=== PATIENT | female | born 1940 | race Caucasian/White ===

== ENCOUNTER 2017-08-13 10:56 | Outpatient (CLI) | payer MEDICARE | END 2017-08-13 10:57 | disposition home or self-care (01) | LOC: BICMAMMO 10:56 | PROVIDERS: ATTEND Internal Medicine | DX: Z78.0 Asymptomatic menopausal state (principal) | CPT/HCPCS: 77080 ==

== ENCOUNTER 2017-09-25 09:11 | Outpatient (CLI) | payer MEDICARE ==
[2017-09-25 10:21] LABS: #Basophils 0.1 thou/uL (0.0-0.2); #Eosinphils 0.4 thou/uL (0.0-0.7); #Lymphocytes 1.9 thou/uL (1.20-3.40); #Monocytes 0.6 thou/uL (0.11-0.59); #Neutrophils 4.1 thou/uL (1.40-6.50); %Basophils 1.3 % (0.0-1.0); %Eosinophils 6.2 % (0.0-10.0); %Lymphocytes 26.5 % (21.0-51.0); %Monocytes 8.4 % (0.0-10.0); %Neutrophils 57.6 % (42.0-75.0); Hemoglobin 14.7 g/dL (12.0-16.0); Mean Corpuscular HGB CONC 33.3 g/dL (32.0-36.0); Mean Corpuscular Hemoglobin 34.5 pg (27.0-31.0); Mean Platelet Volume 6.3 fL (7.4-10.4); Platelet Count 275 thou/uL (130-400); RBC Distribution Width 12.3 % (11.5-14.5); Red Blood Cell (RBC) Count 4.25 mill/uL (4.20-5.40); White Blood Cell (WBC) Count 7.1 thou/uL (4.8-10.8)
[2017-09-25 10:29] LABS: INR-International Normal Ratio 0.9; Prothrombin Time 12.3 SEC (12.0-14.7)
[2017-09-25 10:47] LABS: Anion Gap 14 mmol/L (10-20); BUN (Urea Nitrogen) 20 mg/dL (9.8-20.1); Calc. Creatinine Clearance 0 mL/min (70-130); Calcium 9.9 mg/dL (7.8-10.44); Carbon Dioxide 24 mmol/L (23-31); Chloride 107 mmol/L (98-107); Estimated GFR-MDRD 55; Glucose 118 mg/dL (83-110); Potassium 4.6 mmol/L (3.5-5.1); Sodium 140 mmol/L (136-145)
[2017-09-25 12:48] LABS: Bilirubin Negative (Negative); Blood, Urine Negative (Negative); Clarity CLEAR (Clear); Glucose, Urine (Dipstick) Negative (Negative); Leukocyte Small (Negative); Nitrite Negative (Negative); Protein, Urine (Dipstick) Negative (Neg-Trace); Specific Gravity, Urine 1.018 (1.002-1.036); Urobilinogen 0.2 mg/dL (0.2-1.0); pH, Urine 7.5 (5.0-9.0)
[2017-09-25 12:56] LABS: Bacteria/HPF 1+ HPF (None Seen); Hyaline Casts/LPF 4-6 HYALINE CAST LPF (0-3 Hyaline); Pathc Cast-AUWi Flag 1.21 (0-2.49); RBC/HPF 0-3 HPF (0-3)
== END 2017-09-25 09:12 | disposition home or self-care (01) ==
LOC: LABBT 09:11
PROVIDERS: ATTEND Orthopaedic Surgery
DX: Z01.812 Encounter for preprocedural laboratory examination (principal); M16.12 Unilateral primary osteoarthritis, left hip
CPT/HCPCS: 80048; 81001; 85025; 85610; 86850; 86900; 86901; 87081

== ENCOUNTER 2017-09-25 09:15 | Inpatient (IN) | payer MEDICARE ==
[2017-09-25 09:56] VITALS: BMI 43.1
[2017-10-02] MEDS ORDERED: Vancomycin HCl 1.5 GM in Sodium Chloride 0.9% 250 ML 300 ML IVPB SCH ×2 (06:30→20:00)
[2017-10-02] MEDS ORDERED: Midazolam HCl 2 mg/2 ml Vial ONE (06:32)
[2017-10-02] MEDS ORDERED: Fentanyl 100 MCG/2 ML VIAL ONE (06:32)
[2017-10-02] MEDS ORDERED: Levofloxacin 500 mg/D5W 100 ml Premix Bag ONE (07:01)
[2017-10-02] MEDS ORDERED: Clindamycin/D5W 900 mg/50 ml Premix Bag ONE (07:01)
[2017-10-02] MEDS ORDERED: CEFAZOLIN/Water 2 GM/20 ML SYRINGE ONE (07:01)
[2017-10-02] MEDS ORDERED: diphenhydrAMINE 25 MG CAP PO PRN (07:15)
[2017-10-02] MEDS ORDERED: traMADol HCl 50 MG TAB PO PRN (07:15)
[2017-10-02] MEDS ORDERED: Naloxone HCl 0.4 mg/ml Vial IVP PRN (07:15)
[2017-10-02] MEDS ORDERED: Bupivacaine 0.25% 10 ML VIAL EPIDURAL PRN (07:15)
[2017-10-02] MEDS ORDERED: diphenhydrAMINE 50 MG/ML VIAL IM PRN (07:15)
[2017-10-02] MEDS ORDERED: Naloxone HCl 0.4 mg/ml Vial IV PRN (07:15)
[2017-10-02] MEDS ORDERED: Ondansetron HCl/PF 4 MG/2 ML Vial IVP PRN (07:15)
[2017-10-02] MEDS ORDERED: Promethazine HCl 25 MG/ML VIAL IM PRN (07:15)
[2017-10-02] MEDS ORDERED: Hydrocerin (Eucerin) Cream 120 gm Jar TOP PRN (07:15)
[2017-10-02] MEDS ORDERED: fentaNYL Citrate/PF 1,250 MCG, Bupivacaine 25 ML in Sodium Chloride 0.9% 250 ML 200 ML EPIDURAL SCH (07:15)
[2017-10-02] MEDS ORDERED: Zolpidem Tartrate 5 MG TAB PO PRN (07:15)
[2017-10-02] MEDS ORDERED: HYDROcodone/Acetaminophen 5/325 mg Tablet PO PRN (07:15)
[2017-10-02] MEDS ORDERED: Promethazine HCl 25 MG SUPP PR PRN (07:15)
[2017-10-02] MEDS ORDERED: diphenhydrAMINE 50 MG/ML VIAL IVP PRN (07:15)
[2017-10-02] MEDS ORDERED: Bupivacaine HCl 0.5%/Epinephrine 1:200,000/PF 30 ml Vial ONE (07:48)
[2017-10-02] MEDS ORDERED: Acetaminophen 325 MG TAB PO PRN (09:39)
[2017-10-02] MEDS ORDERED: HYDROcodone/Acetaminophen 10/325 mg Tablet PO PRN ×2 (09:39)
[2017-10-02] MEDS ORDERED: Fentanyl 100 MCG/2 ML VIAL SLOW IVP PRN ×2 (09:39)
[2017-10-02] MEDS ORDERED: Tranexamic Acid 1,000 MG in Sodium Chloride 0.9% 100 ML IVPB SCH (09:45)
[2017-10-02 11:24] LABS: Bilirubin Negative (Negative); Blood, Urine Negative (Negative); Clarity CLEAR (Clear); Glucose, Urine (Dipstick) Negative (Negative); Leukocyte Negative (Negative); Nitrite Negative (Negative); Protein, Urine (Dipstick) Negative (Neg-Trace); Specific Gravity, Urine 1.023 (1.002-1.036); Urobilinogen 0.2 mg/dL (0.2-1.0); pH, Urine 6.5 (5.0-9.0)
--- NOTE | 2017-10-02 12:51 | RAD ---
TWO VIEWS LEFT HIP: INDICATIONS: Postop left hip. COMPARISON: None. FINDINGS: There is a left total hip prosthesis that projects in the expected position. No acute osseous abnorm ality is evident. A focus of heterotopic ossification overlies the left greater trochanter. IMPRESSION: Postoperative left hip. POS: [facility]
[2017-10-02] MEDS ORDERED: Ondansetron HCl/PF 4 MG/2 ML Vial ONE (14:31)
[2017-10-02] MEDS ORDERED: Propofol 200 MG/20 ML VIAL ONE (14:31)
[2017-10-02] MEDS ORDERED: Lidocaine 1% PF 5 ML VIAL ONE (14:31)
[2017-10-02] MEDS ORDERED: Glycopyrrolate 0.2 MG/ML 5 ML SYRINGE ONE (14:31)
[2017-10-02] MEDS ORDERED: Labetalol 100 MG/20 ML MDV ONE (14:31)
[2017-10-02] MEDS ORDERED: PHENYLEPHRINE-NS 100 MCG/ML 10 ML SYRINGE ONE (14:31)
--- NOTE | 2017-10-02 14:31 | OP ---
DATE OF PROCEDURE: 10/02/2017 PREOPERATIVE DIAGNOSIS: Left hip osteoarthritis. POSTOPERATIVE DIAGNOSIS: Left hip osteoarthritis. PROCEDURE PERFORMED: Left total hip arthroplasty. STAFF: Alvin Mark M.D. RF TEST TECHNICIAN: Merlin Anderson PA-C. ANESTHESIA: General with epidural. Staff; Dr. Farrar. ESTIMATED BLOOD LOSS: 200 mL. TOURNIQUET TIME: None. IMPLANTS: A Trident PSL cluster shell, 48 mm. A Trident 10 degree poly insert 32 x 13 mm. An Accolade 130 degree neck, size 3 and 13 mm femoral head -4. ANTIBIOTICS: Levaquin 500 mg, vancomycin 1.5 grams and Ancef 2 grams. The patient received TXA 1 gram. COMPLICATIONS: None. 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 The patient has pain that can be severe. The patient had a previous hip injection 3 months ago which only gave her a couple of weeks relief. I discussed with the patient the risks and benefits of a left total hip arthroplasty including pain, scar, bleeding, infection, damage to vital structures, decreased range of motion or strength, failure of procedure, continued pain despite surgical intervention. I discussed she was at increased risks because of her size, technical difficulty. She understands these risks and benefits and elected to proceed. PROCEDURE IN DETAIL: Timeout was performed designating the patient's left lower extremity as the operative site based on sight, consents, markings. After completion of timeout, the patient's left lower extremity was prepped and draped in a sterile fashion. The patient had been placed in a lateral decubtitisposition, bony prominences well-padded, an axillary roll. A 15 mm skin incision was made down through skin and down through fat down to the IT and exposed the IT band. The IT band was split. We actually made a small rent in the IT band because it was going to split based on how tight it was. We exposed the gluteus medius and minimus, there was a fatty atrophy within the gluteus medius. We then did a tenotomy. There was also tearing in the mid minimus noted which likely was causing her limp. We then exposed the capsule, excised the capsule, removed the labrum, dislocated the hip, exposed the acetabular fractures. We controlled bleeding, had some bleeding inferiorly with exposure. We then cut the femoral neck, removed the head, placed acetabular fracture, excised the labrum, reamed. We felt like a 48 was about the right cup. We had to reream to deepen the cup so that we could chose a PCL cup. We then hammered into place, had a nice firm fit. I was pleased with the overall traction. We then placed a 10 mm poly posterior superior, had good version based on our version eugenio. We then hammered the poly into place. We then moved to the femoral neck. The femur. We then broached up to 2.5, trialed , felt like with a long option +8 option was still not just what we wanted, therefore we went up to a 3 and we trialed with a 3, standard, it was a little bit tight; therefore I chose a -4 option, placed the final implant -[address] She had good length, she had good overall rotation, did not impinge flexion, high flexion, internal and external rotation. I liked the overall alignment, seated position directly of the acetabulum. We then washed, closed what was left of the gluteus minimus with 2 Vicryl, we closed the IT band with #2 Vicryl followed by #2 Quill closing our posterior rent that we had made. We closed the fat. There was some very deep fat layer with 0 Vicryl, closed subcu with 0 Quill, 2-0 Quill, and glue. The patient will be weightbearing as tolerated. I will consult rehab postop for her management. The patient will take aspirin. Munday is guarded. MTDD
[2017-10-02] MEDS: Dextrose 5 %-0.45 % NaCl 1,000 ML IV SCH ×2 (15:14→20:21)
[2017-10-02] MEDS: CEFAZOLIN/Water 2 GM/20 ML SYRINGE SLOW IVP SCH ×2 (15:15→23:08)
[2017-10-02] MEDS ORDERED: Rosuvastatin 10 MG TAB PO SCH (16:30)
[2017-10-02] MEDS: Ketorolac Tromethamine 30 MG/ML VIAL IVP PRN (17:46)
[2017-10-02] MEDS: Ascorbic Acid 500 mg Chewable Tablet PO SCH (20:11)
[2017-10-02] MEDS: Famotidine 20 MG TAB PO SCH (20:15)
[2017-10-02] MEDS: Niacin 500 MG TAB PO SCH (20:16)
[2017-10-02] MEDS: Polyethylene Glycol 3350 17 GM Packet PO SCH ×2 (20:17→20:26)
[2017-10-02] MEDS ORDERED: POTASSIUM GLUCONATE PO SCH (21:00)
[2017-10-02] MEDS ORDERED: Polyethylene Glycol 3350 17 GM Packet PO PRN (21:58)
--- NOTE | 2017-10-02 21:58 | PDOC.PN ---
- Subjective Encounter Start Date: 10/02/17 Encounter Start Time: 17:00 Patient seen and examined. No new complaints. Follows Dr Lutz. Consult for med mngt. No CP/SOB/N/V - Objective MAR Reviewed: Yes Vital Signs & Weight: Vital Signs (12 hours) Temp Pulse Resp BP Pulse Ox 10/02/17 20:00 97.9 F 69 18 139/80 95 10/02/17 12:00 96 F L 59 L 18 98 10/02/17 11:15 96 F L 59 L 18 129/78 98 Weight Weight 236 lb I&O: 10/01/17 10/02/17 10/03/17 06:59 06:59 06:59 Intake Total 2100 Output Total 1600 Balance 500 EKG Reviewed by me: Yes (SR) Phys Exam - Physical Examination Constitutional: NAD Respiratory: no wheezing, no rhonchi Cardiovascular: RRR, no rub Gastrointestinal: soft, non-tender, positive bowel sounds Musculoskeletal: no edema Neurological: moves all 4 limbs Dx/Plan - Plan DVT proph w/SCDs IMPRESSION: 1. CIERRA on CPAP 2. Dyslipidemia 3. Morbid obesity BMI 43.2 4. CKD 3 5. h/o Breast Ca / DJD PLAN: * Cont Statins * Cont home CPAP * Cont selected home meds as below * Close monitoring * Will follow. Thank you for this consultation. * Full code. * DPAO - self/family Review of Systems - Review of Systems Respiratory: negative: Cough, Dry, Shortness of Breath, Hemoptysis, SOB with Excertion, Pleuritic Pain, Sputum, Wheezing Cardiovascular: negative: chest pain, palpitations, orthopnea, paroxysmal nocturnal dyspnea, edema, light headedness, other Gastrointestinal: negative: Nausea, Vomiting, Abdominal Pain, Diarrhea, Constipation, Melena, Hematochezia - Medications/Allergies Allergies/Adverse Reactions: Allergies Allergy/AdvReac Type Severity Reaction Status Date / Time Penicillins Allergy Intermediate Rash Verified 09/25/17 09:56 Medications: Current Medications Acetaminophen (Tylenol) 650 mg PO Q4H PRN PRN Reason: GUTIERREZ/ T > 101F; Mild Pain (1-3) Hydrocodone Bitart/Acetaminophen ([place] 5/325) 1 tab PO Q4H PRN PRN Reason: Mild Pain 0-3 Hydrocodone Bitart/Acetaminophen ([place] 5/325) 2 tab PO Q4H PRN PRN Reason: For Moderate Pain 4-6 Ascorbic Acid (Vitamin C) 1,000 mg PO BID [facility] Last Admin: 10/02/17 20:11 Dose: 1,000 mg Aspirin (Aspirin Chewable) 81 mg PO BID [facility] Last Admin: 10/02/17 20:15 Dose: 81 mg Cefazolin Sodium (Ancef) 2 gm SLOW IVP 0700,1500,2300 [facility] Stop: 10/02/17 23:01 Last Admin: 10/02/17 15:15 Dose: 2 gm Diphenhydramine HCl (Benadryl) 25 mg PO Q3H PRN PRN Reason: Itching Diphenhydramine HCl (Benadryl) 25 mg IM Q3H PRN PRN Reason: Itching Diphenhydramine HCl (Benadryl) 25 mg IVP Q3H PRN PRN Reason: Itching Emollient Cream (Hydrocerin Cream) 0 gm TOP PRN PRN PRN Reason: Itching Famotidine (Pepcid) 20 mg PO BID [facility] Last Admin: 10/02/17 20:15 Dose: 20 mg Ferrous Gluconate (Fergon) 324 mg PO BID[facility] Fentanyl Citrate 1,250 mcg/Bupivacaine HCl 25 ml/ Sodium Chloride 250 mls @ 0 mls/hr EPIDURAL INF [facility] PRN Reason: As Directed Dextrose/Sodium Chloride (D5 1/2 Ns) 1,000 mls @ 100 mls/hr IV .Q10H [facility] Last Admin: 10/02/17 20:21 Dose: Not Given Levofloxacin 500 mg/ Device 100 mls @ 100 mls/hr IVPB 0800 [facility] Stop: 10/03/17 08:59 Iron/Minerals/Multivitamins (Theragran M) 1 tab PO DAILY [facility] Ketorolac Tromethamine (Toradol) 15 mg IVP Q6H PRN PRN Reason: Moderate Pain (4-6) Stop: 10/05/17 07:16 Last Admin: 10/02/17 17:46 Dose: 15 mg Multivitamins (Theragran) 1 tab PO DAILY [facility] Naloxone HCl (Narcan) 0.2 mg IV Q5MIN PRN PRN Reason: RR <=8 OR OBTUNDED/UNAROUSABLE Naloxone HCl (Narcan) 0.1 mg IVP Q15MIN PRN PRN Reason: URINARY RETENTION Niacin (Niacin) 250 mg PO BID [facility] Last Admin: 10/02/17 20:16 Dose: 250 mg Ondansetron HCl (Zofran) 4 mg IVP Q6H PRN PRN Reason: Nausea/Vomiting Polyethylene Glycol (Miralax) 17 gm PO BID [facility] Last Admin: 10/02/17 20:26 Dose: Not Given Promethazine HCl (Phenergan) 12.5 mg IM Q4H PRN PRN Reason: Nausea Promethazine HCl (Phenergan Suppository) 25 mg HI Q4H PRN PRN Reason: Nausea/Vomiting Rosuvastatin Calcium (Crestor) 10 mg PO Q2D [facility] Last Admin: 10/02/17 17:39 Dose: 10 mg Senna/Docusate Sodium (Senokot S) 2 tab PO BID [facility] Sodium Chloride (Flush - Normal Saline) 10 ml IVF Q12HR [facility] Last Admin: 10/02/17 20:21 Dose: Not Given Sodium Chloride (Flush - Normal Saline) 10 ml IVF PRN PRN PRN Reason: Saline Flush Tramadol HCl (Ultram) 50 mg PO Q6H PRN PRN Reason: Mild Pain 1-3 Tramadol HCl (Ultram) 100 mg PO Q6H PRN PRN Reason: Moderate Pain 4-6 Zolpidem Tartrate (Ambien) 5 mg PO HSPRN PRN PRN Reason: Insomnia
[2017-10-03] MEDS: Dextrose 5 %-0.45 % NaCl 1,000 ML IV SCH ×3 (05:37→21:59)
[2017-10-03 05:49] LABS: Hemoglobin 12.1 g/dL (12.0-16.0); Mean Corpuscular HGB CONC 32.8 g/dL (32.0-36.0); Mean Platelet Volume 6.2 fL (7.4-10.4); Platelet Count 223 thou/uL (130-400); RBC Distribution Width 12.1 % (11.5-14.5); Red Blood Cell (RBC) Count 3.56 mill/uL (4.20-5.40); White Blood Cell (WBC) Count 9.5 thou/uL (4.8-10.8)
[2017-10-03] MEDS: traMADol HCl 50 MG TAB PO PRN ×2 (06:26→17:04)
[2017-10-03] MEDS: Ferrous Gluconate 324 MG TAB PO SCH ×2 (08:35→17:06)
[2017-10-03] MEDS: Niacin 500 MG TAB PO SCH ×2 (08:35→20:15)
[2017-10-03] MEDS: Multivitamin W/ Minerals 1 TAB PO SCH (08:37)
[2017-10-03] MEDS: Senokot S 8.6-50 MG TAB PO SCH ×2 (08:37→20:16)
[2017-10-03] MEDS: Famotidine 20 MG TAB PO SCH ×2 (08:37→20:16)
[2017-10-03] MEDS: Ascorbic Acid 500 mg Chewable Tablet PO SCH ×2 (08:38→20:15)
[2017-10-03] MEDS: Multivit, Therapeutic 1 TAB PO SCH (08:39)
[2017-10-03] MEDS: Ketorolac Tromethamine 30 MG/ML VIAL IVP PRN (08:43)
[2017-10-03] MEDS: HYDROcodone/Acetaminophen 5/325 mg Tablet PO PRN (20:16)
--- NOTE | 2017-10-03 21:36 | PDOC.PN ---
- Subjective Encounter Start Date: 10/03/17 Encounter Start Time: 19:30 Patient seen and examined. No new complaints. No overnight events - Objective MAR Reviewed: Yes Vital Signs & Weight: Vital Signs (12 hours) Temp Pulse Pulse Resp BP BP Pulse Ox 10/03/17 15:16 98.3 F 73 16 153/78 H 90 L 10/03/17 11:17 98.3 F 70 18 129/81 97 10/03/17 11:15 69 129/81 Pulse Ox 10/03/17 15:16 10/03/17 11:17 10/03/17 11:15 96 Weight Admit Weight 236 lb Weight 236 lb I&O: 10/02/17 10/03/17 10/04/17 06:59 06:59 06:59 Intake Total 3540 2850 Output Total 2900 2075 Balance 640 775 Result Diagrams: 10/03/17 05:05 Phys Exam - Physical Examination Constitutional: NAD Neurological: moves all 4 limbs Psychiatric: A&O x 3 Dx/Plan - Plan DVT proph w/SCDs IMPRESSION: 1. CIERRA on CPAP 2. Dyslipidemia 3. Morbid obesity BMI 43.2 4. CKD 3 5. h/o Breast Ca / DJD PLAN: * Cont current meds as below * Cont home nasal CPAP * Cont therapy Review of Systems - Review of Systems Cardiovascular: negative: chest pain, palpitations, orthopnea, paroxysmal nocturnal dyspnea, edema, light headedness Gastrointestinal: negative: Nausea, Vomiting, Abdominal Pain, Diarrhea, Constipation, Melena, Hematochezia - Medications/Allergies Allergies/Adverse Reactions: Allergies Allergy/AdvReac Type Severity Reaction Status Date / Time Penicillins Allergy Intermediate Rash Verified 09/25/17 09:56 Medications: Current Medications Acetaminophen (Tylenol) 650 mg PO Q4H PRN PRN Reason: GUTIERREZ/ T > 101F; Mild Pain (1-3) Hydrocodone Bitart/Acetaminophen ([place] 5/325) 1 tab PO Q4H PRN PRN Reason: Mild Pain 0-3 Hydrocodone Bitart/Acetaminophen ([place] 5/325) 2 tab PO Q4H PRN PRN Reason: For Moderate Pain 4-6 Last Admin: 10/03/17 20:16 Dose: 2 tab Ascorbic Acid (Vitamin C) 1,000 mg PO BID [facility] Last Admin: 10/03/17 20:15 Dose: 1,000 mg Aspirin (Aspirin Chewable) 81 mg PO BID [facility] Last Admin: 10/03/17 20:16 Dose: 81 mg Diphenhydramine HCl (Benadryl) 25 mg PO Q3H PRN PRN Reason: Itching Diphenhydramine HCl (Benadryl) 25 mg IM Q3H PRN PRN Reason: Itching Diphenhydramine HCl (Benadryl) 25 mg IVP Q3H PRN PRN Reason: Itching Emollient Cream (Hydrocerin Cream) 0 gm TOP PRN PRN PRN Reason: Itching Famotidine (Pepcid) 20 mg PO BID [facility] Last Admin: 10/03/17 20:16 Dose: 20 mg Ferrous Gluconate (Fergon) 324 mg PO BID-[facility] Last Admin: 10/03/17 17:06 Dose: 324 mg Fentanyl Citrate 1,250 mcg/Bupivacaine HCl 25 ml/ Sodium Chloride 250 mls @ 0 mls/hr EPIDURAL INF [facility] PRN Reason: As Directed Dextrose/Sodium Chloride (D5 1/2 Ns) 1,000 mls @ 100 mls/hr IV .Q10H [facility] Last Admin: 10/03/17 17:00 Dose: Not Given Iron/Minerals/Multivitamins (Theragran M) 1 tab PO DAILY [facility] Last Admin: 10/03/17 08:37 Dose: 1 tab Ketorolac Tromethamine (Toradol) 15 mg IVP Q6H PRN PRN Reason: Moderate Pain (4-6) Stop: 10/05/17 07:16 Last Admin: 10/03/17 08:43 Dose: 15 mg Multivitamins (Theragran) 1 tab PO DAILY [facility] Last Admin: 10/03/17 08:39 Dose: Not Given Naloxone HCl (Narcan) 0.2 mg IV Q5MIN PRN PRN Reason: RR <=8 OR OBTUNDED/UNAROUSABLE Naloxone HCl (Narcan) 0.1 mg IVP Q15MIN PRN PRN Reason: URINARY RETENTION Niacin (Niacin) 250 mg PO BID [facility] Last Admin: 10/03/17 20:15 Dose: 250 mg Ondansetron HCl (Zofran) 4 mg IVP Q6H PRN PRN Reason: Nausea/Vomiting Polyethylene Glycol (Miralax) 17 gm PO DAILY PRN PRN Reason: Constipation Promethazine HCl (Phenergan) 12.5 mg IM Q4H PRN PRN Reason: Nausea Promethazine HCl (Phenergan Suppository) 25 mg [place] Q4H PRN PRN Reason: Nausea/Vomiting Rosuvastatin Calcium (Crestor) 10 mg PO Q2D [facility] Last Admin: 10/02/17 17:39 Dose: 10 mg Senna/Docusate Sodium (Senokot S) 2 tab PO BID [facility] Last Admin: 10/03/17 20:16 Dose: 2 tab Sodium Chloride (Flush - Normal Saline) 10 ml IVF Q12HR [facility] Last Admin: 10/03/17 20:17 Dose: 10 ml Sodium Chloride (Flush - Normal Saline) 10 ml IVF PRN PRN PRN Reason: Saline Flush Tramadol HCl (Ultram) 50 mg PO Q6H PRN PRN Reason: Mild Pain 1-3 Tramadol HCl (Ultram) 100 mg PO Q6H PRN PRN Reason: Moderate Pain 4-6 Last Admin: 10/03/17 17:04 Dose: 100 mg Zolpidem Tartrate (Ambien) 5 mg PO HSPRN PRN PRN Reason: Insomnia
[2017-10-04 05:59] LABS: Hemoglobin 11.4 g/dL (12.0-16.0); Mean Corpuscular HGB CONC 33.4 g/dL (32.0-36.0); Mean Corpuscular Hemoglobin 33.8 pg (27.0-31.0); Mean Platelet Volume 6.2 fL (7.4-10.4); Platelet Count 220 thou/uL (130-400); RBC Distribution Width 12.2 % (11.5-14.5); Red Blood Cell (RBC) Count 3.38 mill/uL (4.20-5.40); White Blood Cell (WBC) Count 11.2 thou/uL (4.8-10.8)
[2017-10-04] MEDS: Ferrous Gluconate 324 MG TAB PO SCH (08:01)
[2017-10-04] MEDS: Ascorbic Acid 500 mg Chewable Tablet PO SCH (08:01)
[2017-10-04] MEDS: Senokot S 8.6-50 MG TAB PO SCH (08:02)
[2017-10-04] MEDS: Niacin 500 MG TAB PO SCH (08:02)
[2017-10-04] MEDS: Multivitamin W/ Minerals 1 TAB PO SCH (08:02)
[2017-10-04] MEDS: Famotidine 20 MG TAB PO SCH (08:02)
[2017-10-04] MEDS: Multivit, Therapeutic 1 TAB PO SCH (08:03)
[2017-10-04] MEDS: HYDROcodone/Acetaminophen 5/325 mg Tablet PO PRN ×2 (10:20→14:33)
[2017-10-04 12:10] VITALS: BP 147/67; TEMP 98.7
[2017-10-04] MEDS: Dextrose 5 %-0.45 % NaCl 1,000 ML IV SCH (14:36)
== END 2017-10-04 15:50 | disposition home health service (06) | DRG 470 ==
LOC: SJJU 10-02 05:31
PROVIDERS: ADMIT Orthopaedic Surgery; ATTEND Orthopaedic Surgery
PROC: 0SRB01Z Replacement of Left Hip Joint with Metal Synthetic Substitute, Open Approach (ICD-10-PCS; principal; 2017-10-02)
PROC: 5A09357 Assistance with Respiratory Ventilation, Less than 24 Consecutive Hours, Continuous Positive Airway Pressure (ICD-10-PCS; 2017-10-03)
DX: M16.12 Unilateral primary osteoarthritis, left hip (principal); Z68.41 Body mass index [BMI] 40.0-44.9, adult; N18.3 Chronic kidney disease, stage 3 (moderate); Z85.3 Personal history of malignant neoplasm of breast; E66.9 Obesity, unspecified; G47.33 Obstructive sleep apnea (adult) (pediatric)
CPT/HCPCS: 36415; 81003; 85027; A4216; C1776; G8978-GP-CM; G8979-GP-CJ; G8987-GO-CJ; G8988-GO-CI; J0670; J1885; J1956; J2001; J2250; J2405; J2704; J3010; J3370; J3490; J7050

== ENCOUNTER 2018-02-14 12:51 | Outpatient (CLI) | payer MEDICARE ==
[2018-02-14 15:43] LABS: Bilirubin Negative (Negative); Blood, Urine Negative (Negative); Clarity TURBID (Clear); Glucose, Urine (Dipstick) Negative (Negative); Leukocyte Small (Negative); Nitrite Negative (Negative); Protein, Urine (Dipstick) Negative (Neg-Trace); Urobilinogen 0.2 mg/dL (0.2-1.0); pH, Urine 7.5 (5.0-9.0)
[2018-02-14 15:45] LABS: Hemoglobin 14.9 g/dL (12.0-16.0); Mean Corpuscular HGB CONC 34.1 g/dL (32.0-36.0); Mean Corpuscular Hemoglobin 33.7 pg (27.0-31.0); Mean Corpuscular Volume 98.8 fL (78.0-98.0); Mean Platelet Volume 5.9 fL (7.4-10.4); Platelet Count 295 thou/uL (130-400); RBC Distribution Width 12.8 % (11.5-14.5); Red Blood Cell (RBC) Count 4.43 mill/uL (4.20-5.40)
[2018-02-14 15:48] LABS: Bacteria/HPF 1+ HPF (None Seen); Hyaline Casts/LPF 0-3 HYALINE CAST LPF (0-3 Hyaline); Pathc Cast-AUWi Flag 0.72 (0-2.49); Prothrombin Time 12.8 SEC (12.0-14.7)
[2018-02-14 15:55] LABS: Anion Gap 15 mmol/L (10-20); BUN (Urea Nitrogen) 33 mg/dL (9.8-20.1); Calc. Creatinine Clearance 0 mL/min (70-130); Calcium 10.2 mg/dL (7.8-10.44); Carbon Dioxide 26 mmol/L (23-31); Chloride 106 mmol/L (98-107); Estimated GFR-MDRD 48; Glucose 89 mg/dL (83-110); Potassium 4.6 mmol/L (3.5-5.1); Sodium 142 mmol/L (136-145)
[2018-02-14 16:10] LABS: Crystals/HPF 2+ AMORPH PHOS HPF (Negative); RBC/HPF 0-3 HPF (0-3)
== END 2018-02-14 12:52 | disposition home or self-care (01) ==
LOC: LABBT 12:51
PROVIDERS: ATTEND Orthopaedic Surgery
DX: Z01.818 Encounter for other preprocedural examination (principal); M17.11 Unilateral primary osteoarthritis, right knee
CPT/HCPCS: 80048; 81001; 85027; 85610; 86850; 86900; 86901; 87081; 93005; 93010

== ENCOUNTER → 2018-02-19 | Day surgery (SDC) | payer MEDICARE ==
[2018-02-14 13:18] VITALS: BMI 40.2
[~2018-02-19] MED LIST: Acetaminophen 325 MG TAB PO PRN; Aspirin 81 mg Enteric Coated Tablet PO SCH; Bisacodyl 10 MG SUPP PR PRN; Bupivacaine/Epinephrine 0.25% 30 ML VIAL ONE; CEFAZOLIN/Water 2 GM/20 ML SYRINGE ONE; Chloraseptic Spray 180 ml Bottle PO PRN; Clindamycin/D5W 900 mg/50 ml Premix Bag ONE; Eucerin (Mineral Oil/Petrolatum,White) 30 gm Jar TOP PRN; Famotidine 20 MG TAB PO PRN; Fentanyl 100 MCG/2 ML VIAL IV PRN; Fentanyl 100 MCG/2 ML VIAL ONE; Fentanyl 100 MCG/2 ML VIAL SLOW IVP PRN; HYDROcodone/Acetaminophen 10/325 mg Tablet PO PRN; HYDROcodone/Acetaminophen 7.5/325 mg Tablet PO PRN; Ibuprofen 200 MG TAB PO PRN; Ketorolac Tromethamine 30 MG/ML VIAL ONE; Levofloxacin 500 mg/D5W 100 ml Premix Bag ONE; Lidocaine 1% PF 5 ML VIAL ONE; Mag-Al 1200 mg/1200 mg/30 ML UDCUP PO PRN; Midazolam HCl 2 mg/2 ml Vial ONE; Milk Of Magnesia 30 ML UDCUP PO PRN; Naloxone HCl 0.4 mg/ml Vial IV PRN; Ondansetron HCl/PF 4 MG/2 ML Vial IVP PRN; Ondansetron HCl/PF 4 MG/2 ML Vial ONE; Ondansetron ODT 4 MG TAB PO PRN; PROPOFOL 200 MG/20 ML VIAL ONE; Promethazine HCl 25 MG/ML VIAL IM PRN; Promethazine HCl 25 MG/ML VIAL SLOW IVP PRN; Ropivacaine 0.5% HCl/PF (150 MG/30 ML VIAL) ONE; Sodium Chloride 0.9% 100 ML ONE; Tranexamic Acid 1,000 MG in Sodium Chloride 0.9% 100 ML IVPB SCH; Vancomycin HCl 1.5 GM in Sodium Chloride 0.9% 250 ML 300 ML IVPB SCH; Zolpidem Tartrate 5 MG TAB PO PRN; diphenhydrAMINE 25 MG CAP PO PRN; fentaNYL Citrate/PF 2,000 MCG in Sodium Chloride 0.9% 60 ML IV PRN; hydrALAZINE 20 MG/ML VIAL SLOW IVP PRN; traMADol HCl 50 MG TAB PO PRN
--- NOTE | 2018-02-19 10:07 | RAD ---
RIGHT KNEE TWO VIEWS: History: Status post arthroplasty. Comparison: None. FINDINGS: Two views right knee demonstrates arthroplasty changes. There are expected post-operative changes in the soft tissues. IMPRESSION: Right knee arthroplasty. POS: [facility]
[2018-02-19 10:31] LABS: Bilirubin Negative (Negative); Blood, Urine Negative (Negative); Clarity CLEAR (Clear); Glucose, Urine (Dipstick) Negative (Negative); Leukocyte Negative (Negative); Nitrite Negative (Negative); Protein, Urine (Dipstick) Negative (Neg-Trace); Specific Gravity, Urine 1.018 (1.002-1.036); Urobilinogen 0.2 mg/dL (0.2-1.0)
[2018-02-19 10:34] LABS: Bacteria/HPF None Seen HPF (None Seen); Hyaline Casts/LPF 0-3 HYALINE CAST LPF (0-3 Hyaline); Pathc Cast-AUWi Flag 0.43 (0-2.49); RBC/HPF 0-3 HPF (0-3); Squamous Epithelial 0-3 HPF (0-3); WBC/HPF None Seen HPF (0-3)
--- NOTE | 2018-02-19 15:14 | OP ---
DATE OF PROCEDURE: 02/19/2018 PREOPERATIVE DIAGNOSIS: Right knee osteoarthritis. POSTOPERATIVE DIAGNOSIS: Right knee osteoarthritis. PROCEDURE PERFORMED: Right total knee arthroplasty. STAFF: Alvin Mark M.D. BUSINESS DEVELOPER: Merlin Anderson PA-C. ANESTHESIA: LMA intubation with a single-shot sciatic and adductor canal block. ESTIMATED BLOOD LOSS: 100 mL. TOURNIQUET TIME: 85 minutes at 300 mmHg. ANTIBIOTICS: Levaquin 500 mg, clindamycin 900 mg and vancomycin 1.5 grams. IMPLANTS: A [place] [employer] knee with a size 3 femur, 2 tibia, 9 CS poly and S27 patella with Simplex cement. COMPLICATIONS: None. HISTORY OF PRESENT ILLNESS: Ms. Padilla is a 77-year-old female who presented with pain present in place with right knee pain for years. She had undergone conservative management. The patient sought out prevention. I discussed with patient the risks, benefits of total knee arthroplasty including pain, scar, bleeding, infection, damage to vital structures, decreased range of motion or strength, continued pain despite surgical intervention. The patient understood the risks and benefits and elected to proceed. PROCEDURE NOTE: Timeout was performed designating the right lower extremity as the operative site, based on site, consents, marking. Anterior incision made on medial patellar arthrotomy exposed the tibia, medial release, took our fat pad, we everted the patella. We then went 6 and 8, 0 varus valgus, 4 degrees anterior slope. We then had to go back to recut our femur ultimately to 8 and 10 degrees varus valgus slope. We rongeured osteophytes, exposed the tibia, cut off the patella fat pad the left and then a medial soft tissue release. We mapped out our tibia, we cut at 0, 6, 4 degrees of posterior slope. We brought the patient, placed lamina spreaders medially and laterally, moved our medial and lateral menisci, removed osteophytes that are some of the PCL release, exposed the tibia, pinned our tibia tray into place. We had originally started with 3, upon looking at the tray we felt that we actually were not coming to full extension, therefore, we went back and recut our femur. We released the posterior soft tissues. We pinned our tibia tray into position. We used it to check our alignment based on the medial border of the tibia, rotated into place , pinned in the medial pin. We then flexed and extended, had good overall alignment with the tibia. I liked the alignment. We everted the patella, cut our patella from 20 down to about 12, drilled for a S27. The patient came into full extension. I liked the overall alignment of the limb. She had good position. The patient had good tracking. We then drilled our lugs for a femur , cut our keel for our tibia, removed the bone, ensured we did our soft tissue release, we released the popliteus to help a little bit of extension, with the lack of a little bit of extension, we then washed, cemented our tibia, placed our poly, removed excess cement, cemented our femur, removed excess cement, everted our patella, cemented our patella. We went back washed and ensured we had completely gotten the cement out. We then washed, closed with 0 Vicryl, 0 Quill, 2-0 Quill and Stratafix and glue. The patient will be weightbearing as follows, follow [place] protocol. She will be followed in-house. SERGIO
[2018-02-19] MEDS: HYDROcodone/Acetaminophen 7.5/325 mg Tablet PO PRN ×3 (15:21→23:50)
[2018-02-19] MEDS: Sodium Chloride 0.9% 1,000 ML IV SCH ×2 (15:23→22:30)
--- NOTE | 2018-02-19 15:32 | PDOC.PN ---
- Subjective Encounter Start Date: 02/19/18 Encounter Start Time: 15:30 -: old records requested/rev consulted for medical management s/p right total knee replacement pt has nerve block, anne catheter she does not have complaints Patient seen and examined. No new complaints. old record and labs reviewed - Objective Resuscitation Status: Resuscitation Status FULL:Full Resuscitation MAR Reviewed: Yes Vital Signs & Weight: Weight Weight 220 lb Radiology Reviewed by me: Yes (knee xray) Phys Exam - Physical Examination Constitutional: NAD HEENT: PERRLA, moist MMs, sclera anicteric Neck: no JVD, supple Respiratory: no wheezing, no rales, no rhonchi Cardiovascular: RRR, no significant murmur, no rub Gastrointestinal: soft, non-tender, no distention, positive bowel sounds obesity+ Musculoskeletal: no edema, pulses present right knee with dressing, nerve block+ Neurological: non-focal, normal sensation, moves all 4 limbs Psychiatric: normal affect, A&O x 3 Skin: no rash, normal turgor Dx/Plan (1) Status post total right knee replacement Code(s): Z96.651 - PRESENCE OF RIGHT ARTIFICIAL KNEE JOINT Status: Acute (2) CKD (chronic kidney disease) stage 3, GFR 30-59 ml/min Code(s): N18.3 - CHRONIC KIDNEY DISEASE, STAGE 3 (MODERATE) Status: Chronic (3) Degenerative joint disease of spine Code(s): M47.9 - SPONDYLOSIS, UNSPECIFIED Status: Chronic (4) Dyslipidemia Code(s): E78.5 - HYPERLIPIDEMIA, UNSPECIFIED Status: Chronic (5) GERD (gastroesophageal reflux disease) Code(s): K21.9 - GASTRO-ESOPHAGEAL REFLUX DISEASE WITHOUT ESOPHAGITIS Status: Chronic (6) Morbid obesity with BMI of 40.0-44.9, adult Code(s): E66.01 - MORBID (SEVERE) OBESITY DUE TO EXCESS CALORIES; Z68.41 - BODY MASS INDEX (BMI) 40.0-44.9, ADULT Status: Chronic (7) CIERRA on CPAP Code(s): G47.33 - OBSTRUCTIVE SLEEP APNEA (ADULT) (PEDIATRIC); Z99.89 - DEPENDENCE ON OTHER ENABLING MACHINES AND DEVICES Status: Chronic (8) Osteoarthritis Code(s): M19.90 - UNSPECIFIED OSTEOARTHRITIS, UNSPECIFIED SITE Status: Chronic - Plan cont current plan of care, plan discussed w/ family, PT/OT * continue aspirin for DVT prophylaxis * continue pepcid for GI prophylaxis * code status: full code * discussed with family bedside * pain control with pain meds as below * medication reviewed as below * symptomatic treatment * home medication reconciled * continue her home cpap machine * nerve block as per anesthesia. Review of Systems - Review of Systems Eyes: negative: Pain, Vision Change, Conjunctivae Inflammation, Eyelid Inflammation, Redness, Other ENT: negative: Ear Pain, Ear Discharge, Nose Pain, Nose Discharge, Nose Congestion, Mouth Pain, Mouth Swelling, Throat Pain, Throat Swelling, Other Respiratory: negative: Cough, Dry, Shortness of Breath, Hemoptysis, SOB with Excertion, Pleuritic Pain, Sputum, Wheezing Cardiovascular: negative: chest pain, palpitations, orthopnea, paroxysmal nocturnal dyspnea, edema, light headedness, other Gastrointestinal: negative: Nausea, Vomiting, Abdominal Pain, Diarrhea, Constipation, Melena, Hematochezia, Other Genitourinary: negative: Dysuria, Frequency, Incontinence, Hematuria, Retention , Other Musculoskeletal: negative: Neck Pain, Shoulder Pain, Arm Pain, Back Pain, Hand Pain, Leg Pain, Foot Pain, Other Skin: negative: Rash, Lesions, Eayd, Bruising, Other - Medications/Allergies Allergies/Adverse Reactions: Allergies Allergy/AdvReac Type Severity Reaction Status Date / Time Penicillins Allergy Intermediate Rash Verified 02/14/18 13:18 Medications: Current Medications Acetaminophen (Tylenol) 650 mg PO Q4H PRN PRN Reason: GUTIERREZ/ T > 101F; Mild Pain (1-3) Hydrocodone Bitart/Acetaminophen ([place] 7.5/325) 1 tab PO Q4H PRN PRN Reason: Mild Pain (1-3) Hydrocodone Bitart/Acetaminophen ([place] 7.5/325) 2 tab PO Q4H PRN PRN Reason: Moderate Pain (4-6) Last Admin: 02/19/18 15:21 Dose: 2 tab Hydrocodone Bitart/Acetaminophen ([place] 10/325) 1 tab PO Q4H PRN PRN Reason: Pain (7-8) Hydrocodone Bitart/Acetaminophen ([place] 10/325) 2 tab PO Q4H PRN PRN Reason: Pain (9-10) Al Hydroxide/Mg Hydroxide (Maalox) 15 ml PO Q4H PRN PRN Reason: Heartburn or Indigestion Aspirin (Ecotrin) 81 mg PO BID [facility] Bisacodyl (Dulcolax) 10 mg [place] DAILYPRN PRN PRN Reason: Constipation Diphenhydramine HCl (Benadryl) 25 mg PO Q6H PRN PRN Reason: Itching Famotidine (Pepcid) 20 mg PO BIDPRN PRN PRN Reason: Heartburn or Indigestion Fentanyl (Sublimaze) 50 mcg IV Q1H PRN PRN Reason: BREAKTHROUGH PAIN Fentanyl (Sublimaze) 100 mcg SLOW IVP Q1H PRN PRN Reason: BREAKTHROUGH Pain (7-10) Ferrous Gluconate (Fergon) 324 mg PO BID [facility] Hydralazine HCl (Apresoline) 10 mg SLOW IVP Q4H PRN PRN Reason: Systolic BP > 180 Ropivacaine 250 ml/ Device 250 mls @ 0 mls/hr NERVE BLCK INF COUNT INCLUDES THE [facility] Clindamycin Phosphate/Dextrose (900 mg/ Device) 50 mls @ 100 mls/hr IVPB Q6HR [facility]CLUDES [facility] Stop: 02/20/18 00:28 Levofloxacin 500 mg/ Device 100 mls @ 100 mls/hr IVPB 0600 COUNT [facility]CLUDES [facility] Stop: 02/20/18 06:59 Sodium Chloride (Normal Saline 0.9%) 1,000 mls @ 100 mls/hr IV .Q10H COUNT [facility]CLUDES [facility] Last Admin: 02/19/18 15:23 Dose: 1,000 mls Vancomycin HCl 1.5 gm/ Sodium (Chloride) 300 mls @ 200 mls/hr IVPB 1800 COUNT [facility]CLUDES [facility] Stop: 02/19/18 19:29 Iron/Minerals/Multivitamins (Theragran M) 1 tab PO DAILY [facility] Ketorolac Tromethamine (Toradol) 15 mg IVP Q6H PRN PRN Reason: Moderate Pain (4-6) Stop: 02/22/18 06:32 Magnesium Hydroxide (Milk Of Magnesium) 30 ml PO DAILYPRN PRN PRN Reason: Constipation Mineral Oil/White Petrolatum (Eucerin Cream) 0 gm TOP BIDPRN PRN PRN Reason: Dry Skin Ondansetron HCl (Zofran) 4 mg IVP Q6H PRN PRN Reason: Nausea/Vomiting Ondansetron HCl (Zofran Odt) 4 mg PO Q6H PRN PRN Reason: Nausea/Vomiting Phenol (Chloraseptic [place] 180 Ml Bot) 0 ml PO PRN PRN PRN Reason: Sore Throat Promethazine HCl (Phenergan) 12.5 mg IM Q4H PRN PRN Reason: Nausea Senna/Docusate Sodium (Senokot S) 2 tab PO BID [facility] Sodium Chloride (Flush - Normal Saline) 10 ml IVF PRN PRN PRN Reason: Saline Flush Tramadol HCl (Ultram) 50 mg PO Q6H PRN PRN Reason: Mild Pain (1-3) Tramadol HCl (Ultram) 100 mg PO Q6H PRN PRN Reason: Moderate Pain 4-6 Tramadol HCl (Ultram) 100 mg PO Q6H PRN PRN Reason: Mild Pain (4-5) Zolpidem Tartrate (Ambien) 5 mg PO HSPRN PRN PRN Reason: Insomnia
[2018-02-19] MEDS: Clindamycin/D5W 900 MG in Premix Bag 1 BAG IVPB SCH ×2 (17:58→23:32)
[2018-02-19] MEDS: Aspirin 81 mg Enteric Coated Tablet PO SCH (19:46)
[2018-02-19] MEDS: Famotidine 20 MG TAB PO SCH (19:47)
[2018-02-20] MEDS: HYDROcodone/Acetaminophen 7.5/325 mg Tablet PO PRN (04:16)
[2018-02-20 06:26] LABS: Hemoglobin 11.7 g/dL (12.0-16.0); Mean Corpuscular HGB CONC 33.9 g/dL (32.0-36.0); Mean Corpuscular Hemoglobin 33.7 pg (27.0-31.0); Mean Corpuscular Volume 99.6 fL (78.0-98.0); Mean Platelet Volume 6.1 fL (7.4-10.4); Platelet Count 219 thou/uL (130-400); RBC Distribution Width 12.7 % (11.5-14.5); Red Blood Cell (RBC) Count 3.48 mill/uL (4.20-5.40); White Blood Cell (WBC) Count 8.3 thou/uL (4.8-10.8)
[2018-02-20] MEDS: Ferrous Gluconate 324 MG TAB PO SCH ×2 (07:48→19:59)
[2018-02-20] MEDS: Aspirin 81 mg Enteric Coated Tablet PO SCH ×2 (07:48→19:59)
[2018-02-20] MEDS: Multivitamin W/ Minerals 1 TAB PO SCH (07:49)
[2018-02-20] MEDS: Famotidine 20 MG TAB PO SCH ×2 (07:49→19:59)
[2018-02-20] MEDS: Senokot S 8.6-50 MG TAB PO SCH ×2 (07:50→19:58)
[2018-02-20] MEDS: Ropivacaine HCl/PF 250 ML in Premix Bag 1 BAG NERVE BLCK SCH (10:32)
--- NOTE | 2018-02-20 10:33 | PRG ---
DATE OF ADMISSION: 02/19/2018 DATE OF DISCHARGE: 02/20/2018 PRIMARY CARE PHYSICIAN: Rudolph Barcenas M.D. DISCHARGE DISPOSITION: Home. PRIMARY DISCHARGE DIAGNOSIS: Status post right total knee replacement. SECONDARY DISCHARGE DIAGNOSES: Chronic kidney disease stage 3, degenerative joint disease of spine, dyslipidemia, gastroesophageal reflux disease, morbid obesity with BMI 40, obstructive sleep apnea on home CPAP machine and osteoarthritis. PRIMARY PROCEDURES AND OPERATIONS: Right total knee replacement by Dr. Mark. RADIOLOGICAL INVESTIGATION: Knee x-ray. SIGNIFICANT LABORATORY DATA: WBC 8.3, hemoglobin 11.7, platelet 219. Urinalysis normal. DISCHARGE MEDICATIONS: The patient will continue all her previous home medications. Vitamin C 1000 mg p.o. daily, vitamin D3 10,000 units p.o. daily, Probiotic 1 capsule p.o. b.i.d., multivitamin 1 ta blet p.o. b.i.d., Niacin 250 mg p.o. daily, MiraLax 17 grams p.o. daily, potassium gluconate 2 tablet s b.i.d., Crestor 10 mg p.o. every other day, Coenzyme Q10 400 mg p.o. daily, Ocuvite 3 capsules p.o. daily, Zantac 150 mg p.o. b.i.d., aspirin 81 mg p.o. b.i.d. CONTRAINDICATIONS: None. CODE STATUS: FULL CODE. INPATIENT FEED RESEARCH AIDE: Dr. Mark was primary while in hospital. [facility] team was consulted for medic al comanagement. TEST RESULTS PENDING ON DISCHARGE: None. ALLERGIES: PENICILLIN. DISCHARGE PLAN: Post hospital, patient has appointment with Dr. Mark on 03/19/2018 at 1:00 p.m. The patient will make followup appointment with primary care physician in 1 week. HOSPITAL COURSE: A 77-year-old female who has osteoarthritis and this time she was admitted by Dr. Olivia ordoñez for elective admission for right total knee replacement which was done on 02/19/2018 without a ny complications. Postoperatively, at [facility], [facility] team was consulted for medical comanag ement. The patient's all medical problems remained stable. We continued all her home medication whi le in hospital. Her pain was controlled with pain medication as well as a nerve block. The patient overall is doing very well with [facility] protocol treatment. Primary team is planning to con leather grainer discharge later on today. She will continue all previous home medication. She will have aspir in for DVT prophylaxis and she will follow up with orthopedic doctor as well as primary care [place]. The patient will have outpatient rehabilitation as well. The patient is seen and examined at bedside today. Review of systems reviewed and negative. Plan of care discussed with the family member. PHYSICAL EXAMINATION: VITAL SIGNS: Currently, temperature 97.9, pulse 63, respiratory rate 16, saturation 93% on room air, blood pressure 116/72 and weight 220 pounds. GENERAL: The patient is currently alert, awake, no obvious acute distress. HEAD: Normocephalic, atraumatic. EYES: Pupils round, reactive to light. Extraocular muscle intact. ENT: Oropharynx within normal limits. Moist mucous membranes. No oral lesion, no pharyngeal erythe ma, no exudate. NECK: Supple, no JVD, no thyromegaly, no carotid bruit. LUNGS: Clear to auscultation without any rhonchi. CARDIAC: S1, S2 regular without any murmur. ABDOMEN: Soft and benign. EXTREMITIES: Surgical site is clean and healthy. After discharge, we will sign off.
[2018-02-20] MEDS: Ketorolac Tromethamine 30 MG/ML VIAL IVP PRN (11:18)
[2018-02-20] MEDS: Sodium Chloride 0.9% 1,000 ML IV SCH ×2 (18:55→18:56)
[2018-02-21] MEDS: Sodium Chloride 0.9% 1,000 ML IV SCH ×4 (03:37→23:44)
[2018-02-21 05:38] LABS: Hemoglobin 12.6 g/dL (12.0-16.0); Mean Corpuscular HGB CONC 33.5 g/dL (32.0-36.0); Mean Corpuscular Hemoglobin 33.1 pg (27.0-31.0); Mean Corpuscular Volume 98.7 fL (78.0-98.0); Mean Platelet Volume 6.3 fL (7.4-10.4); Platelet Count 190 thou/uL (130-400); RBC Distribution Width 12.8 % (11.5-14.5); Red Blood Cell (RBC) Count 3.82 mill/uL (4.20-5.40); White Blood Cell (WBC) Count 10.9 thou/uL (4.8-10.8)
[2018-02-21] MEDS: Ketorolac Tromethamine 30 MG/ML VIAL IVP PRN (09:34)
[2018-02-21] MEDS: Multivitamin W/ Minerals 1 TAB PO SCH (09:39)
[2018-02-21] MEDS: Ferrous Gluconate 324 MG TAB PO SCH ×2 (09:39→21:19)
[2018-02-21] MEDS: Senokot S 8.6-50 MG TAB PO SCH ×2 (09:40→21:19)
[2018-02-21] MEDS: Famotidine 20 MG TAB PO SCH ×2 (09:40→21:19)
[2018-02-21] MEDS: Aspirin 81 mg Enteric Coated Tablet PO SCH ×2 (09:40→21:19)
--- NOTE | 2018-02-21 10:08 | PDOC.PN ---
- Subjective Encounter Start Date: 02/21/18 Encounter Start Time: 09:20 pt did not leave yesterday, as he was having severe pain and required CAR CLEANING SUPERVISOR, she is on CAR CLEANING SUPERVISOR this morning but she now doing fine. - Objective Resuscitation Status: Resuscitation Status FULL:Full Resuscitation MAR Reviewed: Yes Vital Signs & Weight: Vital Signs (12 hours) Temp Pulse Resp BP Pulse Ox 02/21/18 08:11 99 F 69 18 182/92 H 92 L 02/21/18 07:54 98.7 F 71 20 94 L 02/21/18 04:01 98.7 F 71 20 177/87 H 90 L 02/20/18 23:51 98.2 F 70 16 167/82 H 94 L Weight Admit Weight 220 lb Weight 220 lb I&O: 02/20/18 02/21/18 02/22/18 06:59 06:59 06:59 Intake Total 1140 710 Output Total 550 750 Balance 590 -40 Result Diagrams: 02/21/18 04:44 Phys Exam - Physical Examination Constitutional: NAD HEENT: PERRLA, moist MMs, sclera anicteric Neck: no JVD, supple Respiratory: no wheezing, no rales, no rhonchi Cardiovascular: RRR, no significant murmur, no rub Gastrointestinal: soft, non-tender, no distention, positive bowel sounds morbid obesity+ Musculoskeletal: no edema, pulses present surgical site clean over right knee Neurological: non-focal, normal sensation, moves all 4 limbs Psychiatric: normal affect, A&O x 3 Skin: no rash, normal turgor Dx/Plan (1) Status post total right knee replacement Code(s): Z96.651 - PRESENCE OF RIGHT ARTIFICIAL KNEE JOINT Status: Acute (2) CKD (chronic kidney disease) stage 3, GFR 30-59 ml/min Code(s): N18.3 - CHRONIC KIDNEY DISEASE, STAGE 3 (MODERATE) Status: Chronic (3) Degenerative joint disease of spine Code(s): M47.9 - SPONDYLOSIS, UNSPECIFIED Status: Chronic (4) Dyslipidemia Code(s): E78.5 - HYPERLIPIDEMIA, UNSPECIFIED Status: Chronic (5) GERD (gastroesophageal reflux disease) Code(s): K21.9 - GASTRO-ESOPHAGEAL REFLUX DISEASE WITHOUT ESOPHAGITIS Status: Chronic (6) Morbid obesity with BMI of 40.0-44.9, adult Code(s): E66.01 - MORBID (SEVERE) OBESITY DUE TO EXCESS CALORIES; Z68.41 - BODY MASS INDEX (BMI) 40.0-44.9, ADULT Status: Chronic (7) CIERRA on CPAP Code(s): G47.33 - OBSTRUCTIVE SLEEP APNEA (ADULT) (PEDIATRIC); Z99.89 - DEPENDENCE ON OTHER ENABLING MACHINES AND DEVICES Status: Chronic (8) Osteoarthritis Code(s): M19.90 - UNSPECIFIED OSTEOARTHRITIS, UNSPECIFIED SITE Status: Chronic - Plan cont current plan of care, PT/OT * pain controlled with bull chain operator * discharge decision will defer to primary team * medical problems are stable with current medical treatment as below * medication reviewed as below * symptomatic treatment. Review of Systems - Review of Systems Constitutional: negative: fever, chills, sweats, weakness, malaise, other ENT: negative: Ear Pain, Ear Discharge, Nose Pain, Nose Discharge, Nose Congestion, Mouth Pain, Mouth Swelling, Throat Pain, Throat Swelling, Other Respiratory: negative: Cough, Dry, Shortness of Breath, Hemoptysis, SOB with Excertion, Pleuritic Pain, Sputum, Wheezing Cardiovascular: negative: chest pain, palpitations, orthopnea, paroxysmal nocturnal dyspnea, edema, light headedness, other Gastrointestinal: negative: Nausea, Vomiting, Abdominal Pain, Diarrhea, Constipation, Melena, Hematochezia, Other Genitourinary: negative: Dysuria, Frequency, Incontinence, Hematuria, Retention , Other Musculoskeletal: negative: Neck Pain, Shoulder Pain, Arm Pain, Back Pain, Hand Pain, Leg Pain, Foot Pain, Other Skin: negative: Rash, Lesions, Eyad, Bruising, Other - Medications/Allergies Allergies/Adverse Reactions: Allergies Allergy/AdvReac Type Severity Reaction Status Date / Time Penicillins Allergy Intermediate Rash Verified 02/14/18 13:18 Medications: Current Medications Acetaminophen (Tylenol) 650 mg PO Q4H PRN PRN Reason: GUTIERREZ/ T > 101F; Mild Pain (1-3) Al Hydroxide/Mg Hydroxide (Maalox) 15 ml PO Q4H PRN PRN Reason: Heartburn or Indigestion Aspirin (Ecotrin) 81 mg PO BID SHAME[place] Last Admin: 02/21/18 09:40 Dose: 81 mg Bisacodyl (Dulcolax) 10 mg [place] DAILYPRN PRN PRN Reason: Constipation Diphenhydramine HCl (Benadryl) 25 mg PO Q6H PRN PRN Reason: Itching Famotidine (Pepcid) 20 mg PO BID [facility] Last Admin: 02/21/18 09:40 Dose: 20 mg Ferrous Gluconate (Fergon) 324 mg PO BID [facility] Last Admin: 02/21/18 09:39 Dose: 324 mg Hydralazine HCl (Apresoline) 10 mg SLOW IVP Q4H PRN PRN Reason: Systolic BP > 180 Ropivacaine 250 ml/ Device 250 mls @ 0 mls/hr NERVE BLCK INF [facility] Last Admin: 02/20/18 10:32 Dose: 250 mls Sodium Chloride (Normal Saline 0.9%) 1,000 mls @ 100 mls/hr IV .Q10H [facility] Last Admin: 02/21/18 06:05 Dose: 1,000 mls Fentanyl Citrate 2,000 mcg/ (Sodium Chloride) 100 mls @ 0 mls/hr IV INF PRN PRN Reason: Pain Last Admin: 02/20/18 13:18 Dose: 100 mls Iron/Minerals/Multivitamins (Theragran M) 1 tab PO DAILY [facility] Last Admin: 02/21/18 09:39 Dose: 1 tab Ketorolac Tromethamine (Toradol) 15 mg IVP Q6H PRN PRN Reason: Moderate Pain (4-6) Stop: 02/22/18 06:32 Last Admin: 02/21/18 09:34 Dose: 15 mg Magnesium Hydroxide (Milk Of Magnesium) 30 ml PO DAILYPRN PRN PRN Reason: Constipation Mineral Oil/White Petrolatum (Eucerin Cream) 0 gm TOP BIDPRN PRN PRN Reason: Dry Skin Naloxone HCl (Narcan) 0.2 mg IV Q5MIN PRN PRN Reason: RR <8 or pt obtun/unarousable Ondansetron HCl (Zofran) 4 mg IVP Q6H PRN PRN Reason: Nausea/Vomiting Ondansetron HCl (Zofran Odt) 4 mg PO Q6H PRN PRN Reason: Nausea/Vomiting Phenol (Chloraseptic [place] 180 Ml Bot) 0 ml PO PRN PRN PRN Reason: Sore Throat Promethazine HCl (Phenergan) 12.5 mg IM Q4H PRN PRN Reason: Nausea Senna/Docusate Sodium (Senokot S) 2 tab PO BID [place] Last Admin: 02/21/18 09:40 Dose: 2 tab Sodium Chloride (Flush - Normal Saline) 10 ml IVF PRN PRN PRN Reason: Saline Flush
--- NOTE | 2018-02-21 11:30 | DIS ---
DATE OF ADMISSION: 02/19/2018 DATE OF DISCHARGE: 02/21/2018 PRIMARY CARE PHYSICIAN: Rudolph Barcenas M.D. DISCHARGE DISPOSITION: Home. PRIMARY DISCHARGE DIAGNOSIS: Status post right total knee replacement. SECONDARY DISCHARGE DIAGNOSES: Osteoarthritis, obstructive sleep apnea on CPAP, morbid obesity with body mass index of 48, gastroesophageal reflux disease, dyslipidemia, degenerative joint disease of [place], and chronic kidney disease stage 3. PRIMARY PROCEDURE/OPERATION: Right total knee replacement. RADIOLOGICAL INVESTIGATION: Knee x-ray. SIGNIFICANT LABORATORY DATA: Hemoglobin 12.6. Urinalysis normal. DISCHARGE MEDICATIONS: Please see my progress note from yesterday for her discharge medications. CONTRAINDICATIONS: None. CODE STATUS: FULL CODE. INPATIENT CONSULTANTS: Dr. Mark was primary. [facility] team was consulted for medical comanagement. TEST RESULTS PENDING ON DISCHARGE: None. ALLERGIES: PENICILLIN. DISCHARGE PLAN: Post hospital, the patient will follow up with Dr. Mark as instructed. HOSPITAL COURSE: The patient was electively admitted for right total knee replacement. At [facility], [facility] team was consulted for medical management. Patient's medical problem remained stable. During this admission, patient required nerve block and her pain control was controlled with AUTOMOTIVE REFINISH TECHNICIAN. Patient is overall doing well. Patient is medically stable and will sign off today.
[2018-02-21] MEDS: HYDROcodone/Acetaminophen 10/325 mg Tablet PO PRN ×2 (12:18→21:18)
[2018-02-21] MEDS: Ropivacaine HCl/PF 250 ML in Premix Bag 1 BAG NERVE BLCK SCH (12:40)
[2018-02-21] MEDS: Ketorolac Tromethamine 30 MG/ML VIAL IVP SCH ×2 (12:49→19:14)
[2018-02-22] MEDS: HYDROcodone/Acetaminophen 10/325 mg Tablet PO PRN ×3 (04:21→09:14)
[2018-02-22 05:26] LABS: Hemoglobin 10.9 g/dL (12.0-16.0); Mean Corpuscular HGB CONC 33.3 g/dL (32.0-36.0); Mean Corpuscular Hemoglobin 32.8 pg (27.0-31.0); Mean Corpuscular Volume 98.6 fL (78.0-98.0); Platelet Count 215 thou/uL (130-400); RBC Distribution Width 12.8 % (11.5-14.5); Red Blood Cell (RBC) Count 3.33 mill/uL (4.20-5.40); White Blood Cell (WBC) Count 8.4 thou/uL (4.8-10.8)
[2018-02-22] MEDS: Senokot S 8.6-50 MG TAB PO SCH (08:56)
[2018-02-22] MEDS: Aspirin 81 mg Enteric Coated Tablet PO SCH (08:57)
[2018-02-22] MEDS: Famotidine 20 MG TAB PO SCH (08:57)
[2018-02-22] MEDS: Multivitamin W/ Minerals 1 TAB PO SCH (08:57)
[2018-02-22] MEDS: Ferrous Gluconate 324 MG TAB PO SCH (08:57)
[2018-02-22 12:40] VITALS: BP 179/78; TEMP 98.1
== END | disposition home or self-care (01) ==
LOC: SDC 05:37 → SJJU 14:18
PROVIDERS: ATTEND Orthopaedic Surgery
PROC: 0SRC0J9 Replacement of Right Knee Joint with Synthetic Substitute, Cemented, Open Approach (ICD-10-PCS; principal; 2018-02-19)
DX: M17.11 Unilateral primary osteoarthritis, right knee (principal); M47.9 Spondylosis, unspecified; G47.33 Obstructive sleep apnea (adult) (pediatric); K21.9 Gastro-esophageal reflux disease without esophagitis; E78.5 Hyperlipidemia, unspecified; E66.01 Morbid (severe) obesity due to excess calories; Z68.41 Body mass index [BMI] 40.0-44.9, adult; Z88.0 Allergy status to penicillin; Z99.89 Dependence on other enabling machines and devices; Z79.899 Other long term (current) drug therapy
CPT/HCPCS: 36415; 81001; 85027; 96374; C1713; C1776; G8978-GP-CL; G8979-GP-CJ; J1885; J1956; J2001; J2250; J2405; J2704; J2795; J3010; J3370; J3490; J7050